=== PATIENT | female | born 1940 | race Asian ===

== ENCOUNTER → 2017-01-25 | Outpatient (CLI) | payer OTHER, MEDICARE | LOC: BRMIMAGING 09:08 | PROVIDERS: ATTEND Internal Medicine | DX: Z13.820 Encounter for screening for osteoporosis (principal); M85.80 Other specified disorders of bone density and structure, unspecified site; Z78.0 Asymptomatic menopausal state ==

== ENCOUNTER → 2018-05-07 | Outpatient (CLI) | payer OTHER, MEDICARE | LOC: CIMAGING 08:44 | PROVIDERS: ATTEND Internal Medicine | DX: M25.512 Pain in left shoulder (principal) | CPT/HCPCS: 73030-PO ==

== ENCOUNTER → 2018-09-12 | Outpatient (CLI) | payer OTHER, MEDICARE | LOC: CIMAGING 11:42 ==